=== PATIENT | female | born 1960 | race Caucasian/White ===

== ENCOUNTER → 2018-07-04 14:31 | Outpatient (CLI) | payer OTHER, SELFPAY ==
--- NOTE | 2018-07-04 14:35 | BI_ITS ---
MAMMOGRAPHY - BILATERAL SCREENING REASON FOR EXAM: Female, 57 years old. Routine annual screening examination. PERTINENT HISTORY: Aunt with breast cancer. TECHNIQUE: Digital bilateral breast elke (3D mammographic acquisition) in the CC and MLO projections. 2-D mediolateral oblique (MLO) and craniocaudad (CC) views of both breasts were obtained. CAD: Full Field Digital Mammography with Computer Added Detection was performed. COMPARISON: Comparison is made with prior examination dated July 11, 2017. FINDINGS: Breast Composition: There are scattered areas of fibroglandular density. There are no dominant masses or suspicious calcifications. No other significant abnormalities are identified. There has been no significant change since the prior study. BI/SCREENING MAMM (CAD), BILAT IMPRESSION: Stable bilateral screening mammogram. Yearly follow-up mammogram recommended. (A) ASSESSMENT CATEGORY: BIRADS Category 1: Negative. A letter regarding these results will be sent to the patient by the facility within 30 days. Approximately 10% of breast cancers are not detected by mammography. A normal mammogram should not delay biopsy of a clinically suspicious abnormality. [id number] Electronically Signed: Padilla Resendiz MD at 15:28 EDT Tel [phone], Service support ,
== END ==
PROVIDERS: Family Provider Family Medicine; PCP Family Medicine; Referring Provider Family Medicine; Visit Provider Family Medicine
DX: Z12.31 Encounter for screening mammogram for malignant neoplasm of breast (principal)
CPT/HCPCS: 77063; 77067

== ENCOUNTER → 2019-06-19 10:02 | Outpatient (CLI) | payer OTHER, SELFPAY ==
--- NOTE | 2019-06-19 10:24 | BI_ITS ---
BILATERAL DIGITAL MAMMOGRAM WITH TOMOSYNTHESIS: Mediolateraloblique and craniocaudal views demonstrate no evidence of dominant parenchymal masses. No cluster of microcalcification or architectural distortion is seen. No evidence of skin thickening. No significant change since 07/04/2018. Breast Density: There are scattered areas of fibroglandular density. CAD was used to assist in final assessment. BI/SCREEN MAMM (CAD) W/CHICA BILAT IMPRESSION: NORMAL MAMMOGRAM BILATERALLY. ASSESSMENT CATEGORY: FINAL ASSESSMENT: BI-RAD CATEGORY I (NEGATIVE) YEARLY MAMMOGRAPHY RECOMMENDED Approximately 10% of breast cancers are not detected by mammography. A normal mammogram should not delay biopsy of a clinically suspicious abnormality. [id number] Electronically Signed: Nikolas Lopez, at 17:18 EDT Tel , Service support ,
== END ==
PROVIDERS: Family Provider Family Medicine; PCP Family Medicine; Referring Provider Family Medicine; Visit Provider Family Medicine
DX: Z12.31 Encounter for screening mammogram for malignant neoplasm of breast (principal)
CPT/HCPCS: 77063; 77067

== ENCOUNTER → 2020-07-01 12:26 | Outpatient (CLI) | payer OTHER, SELFPAY ==
--- NOTE | 2020-07-01 12:45 | BI_ITS ---
MAMMOGRAPHY - BILATERAL SCREENING REASON FOR EXAM: Female, 59 years old. Routine annual screening examination. PERTINENT HISTORY: Aunt with breast cancer. TECHNIQUE: Digital bilateral breast chica (3D mammographic acquisition) in the CC and MLO projections. 2-D mediolateral oblique (MLO) and craniocaudad (CC) views of both breasts were obtained. CAD: Full Field Digital Mammography with Computer Added Detection was performed. COMPARISON: Comparison is made with prior examination dated 06/19/2019 and 07/04/2018. FINDINGS: Breast Composition: There are scattered areas of fibroglandular density. There are no dominant masses or suspicious calcifications. No other significant abnormalities are identified. There has been no significant change since the prior study. BI/SCREEN MAMM (CAD) W/CHICA BILAT IMPRESSION: Stable bilateral screening mammogram. Yearly follow-up mammogram recommended. (A) ASSESSMENT CATEGORY: BIRADS Category 1: Negative. A letter regarding these results will be sent to the patient by the facility within 30 days. Approximately 10% of breast cancers are not detected by mammography. A normal mammogram should not delay biopsy of a clinically suspicious abnormality. [id number] Electronically Signed: Padilla Resendiz, at 14:36 EDT , Service support ,
== END ==
PROVIDERS: PCP Family Medicine; Referring Provider Family Medicine; Visit Provider Family Medicine
DX: Z12.31 Encounter for screening mammogram for malignant neoplasm of breast (principal)
CPT/HCPCS: 77063; 77067

== ENCOUNTER → 2021-07-28 12:32 | Outpatient (CLI) | payer OTHER, SELFPAY ==
--- NOTE | 2021-07-28 12:42 | BI_ITS ---
MAMMOGRAPHY - BILATERAL SCREENING REASON FOR EXAM: Female, 61 years old. Routine annual screening examination. PERTINENT HISTORY: Aunt with breast cancer. TECHNIQUE: Digital bilateral breast chica (3D mammographic acquisition) in the CC and MLO projections. 2-D mediolateral oblique (MLO) and craniocaudad (CC) views of both breasts were obtained. CAD: Full Field Digital Mammography with Computer Added Detection was performed. COMPARISON: Comparison is made with prior examination dated 07/01/2020 and 06/19/2019. FINDINGS: Breast Composition: There are scattered areas of fibroglandular density. There are no dominant masses or suspicious calcifications. No other significant abnormalities are identified. There has been no significant change since the prior study. BI/SCRN MAMM (CAD)W/CHICA BILAT IMPRESSION: Stable bilateral screening mammogram. Yearly follow-up mammogram recommended. (A) ASSESSMENT CATEGORY: BIRADS Category 1: Negative. A letter regarding these results will be sent to the patient by the facility within 30 days. Approximately 10% of breast cancers are not detected by mammography. A normal mammogram should not delay biopsy of a clinically suspicious abnormality. [id number] Electronically Signed: Padilla Resendiz MD at 13:59 EST , Service support ,
== END ==
PROVIDERS: PCP Family Medicine; Referring Provider Physician Assistant; Visit Provider Physician Assistant
DX: Z12.31 Encounter for screening mammogram for malignant neoplasm of breast (principal)
CPT/HCPCS: 77063; 77067

== ENCOUNTER → 2021-09-07 08:59 | Outpatient (CLI) | payer OTHER, SELFPAY ==
--- NOTE | 2021-09-07 09:21 | BD_ITS ---
STUDY: DUAL ENERGY X-RAY ABSORPTIOMETRY / DXA REASON FOR EXAM: Female, 61 years old. [id number]. Patient is postmenopausal. TECHNIQUE: Bone Mineral Density (BMD) measurements of lumbar spine and bilateral hips were obtained. COMPARISON: None. FINDINGS: Lumbar Spine (L1-L4): g/cm2 (0.799) / T-score (-2.3) / Z-score (-0.6) Findings are suggestive of osteopenia with a high fracture risk. Left Femur Total: g/cm2 (0.662) / T-score (-2.3) / Z-score (-1.2) Left Femoral Neck: g/cm2 (0.624) / T-score (-2.0) / Z-score (-0.6) Right Femur Total: g/cm2 (0.704) / T-score (-2.0) / Z-score (-0.8) Right Femoral Neck: g/cm2 (0.581) / T-score (-2.4) / Z-score (-1.0) BD/Dexa Bone Density Study IMPRESSION: The patient is considered osteopenic as outlined below according to World Suman Organization (WHO) criteria with a high fracture risk. Reference Information: The T-score is the number of standard deviations above or below the standard which is normal for young adults at their peak bone mineral density. The World Health Organization (WHO) interprets the T-scores as follows: Above -1 Normal bone density Between -1 and -2.5 Osteopenia Equal to / or below -2.5 Osteoporosis As a practical clinical guideline, osteopenia may be graded as follows: Mild -1 through -1.5 Moderate -1.6 through -2.0 Severe -2.1 through -2.4 The Z-score is the number of standard deviations above or below age-matched controls. A Z-score of less than -1.5 would be considered abnormal. References: 1. NIH Osteoporosis and Related Bone Diseases www osteo.org 2. International Society for Clinical Densitometry www iscd.org 3. National Osteoporosis Foundation www nof.org Electronically Signed: Padilla Resendiz MD at 10:05 EST , Service support ,
== END ==
PROVIDERS: PCP Family Medicine; Referring Provider Physician Assistant; Visit Provider Physician Assistant
DX: Z78.0 Asymptomatic menopausal state (principal)
CPT/HCPCS: 77080

== ENCOUNTER → 2022-08-22 | Outpatient (CLI) | payer OTHER, SELFPAY ==
--- NOTE | 2022-08-22 14:41 | BI_ITS ---
MAMMOGRAPHY - BILATERAL SCREENING REASON FOR EXAM: Female, 62 years old. Routine annual screening examination. PERTINENT HISTORY: Non-contributory. TECHNIQUE: Digital bilateral breast chica (3D mammographic acquisition) in the CC and MLO projections. 2-D mediolateral oblique (MLO) and craniocaudad (CC) views of both breasts were obtained. CAD: Full Field Digital Mammography with Computer Added Detection was performed. COMPARISON: Comparison is made with prior study dated 07/28/2021 and 07/01/2020. FINDINGS: Breast Composition: There are scattered areas of fibroglandular density. There are no dominant masses or suspicious calcifications. No other significant abnormalities are identified. There has been no significant change since the prior study. BI/SCRN MAMM (CAD)W/CHICA BILAT IMPRESSION: Stable bilateral screening mammogram. Yearly follow-up mammogram recommended. (A) ASSESSMENT CATEGORY: BIRADS Category 1: Negative. A letter regarding these results will be sent to the patient by the facility within 30 days. Approximately 10% of breast cancers are not detected by mammography. A normal mammogram should not delay biopsy of a clinically suspicious abnormality. [id number] Electronically Signed: Padilla Resendiz MD at 15:29 EST ,
== END | disposition home or self-care (01) ==
LOC: OPBI 14:38
PROVIDERS: PCP Physician Assistant; Visit Provider Physician Assistant
DX: Z12.31 Encounter for screening mammogram for malignant neoplasm of breast (principal)
CPT/HCPCS: 77063; 77067

== ENCOUNTER → 2022-09-24 | Outpatient (CLI) | payer OTHER, SELFPAY ==
--- NOTE | 2022-09-24 09:47 | ECHOD_ITS ---
Reason For Study: ARRYTHMIA Procedure This was a 2D Doppler, Color Flow transthoracic echocardiogram. Exam performed in department. Left Ventricle Normal LV size. Left ventricular systolic function is normal. The estimated ejection fraction is 65 %. No regional wall motion abnormalities noted. Right Ventricle Normal RV size. Normal systolic function. Atria Normal left atrium. Normal right atrium. Mitral Valve Normal mitral valve. Tricuspid Valve Normal tricuspid valve. Mild (1+) tricuspid valve insufficiency. Pulmonary artery systolic pressure is 34 mmHg. Aortic Valve Normal aortic valve. Trisinus/trileaflet aortic valve. Pulmonic Valve Normal pulmonic valve. Great Vessels Normal aortic root. The pulmonary artery is normal size. Normal inferior vena cava. Pericardium/Pleural No pericardial effusion. MMode/2D Measurements & Calculations LVIDd: 4.7 cm IVSd: 0.76 cm Ao root diam: 3.2 cm LVIDs: 3.0 cm LVPWd: 0.99 cm RVDd: 3.8 cm FS: 35.3 % LAV(MOD-bp): 59.4 ml LVAd ap4: 28.4 cm2 SV(MOD-sp4): 50.0 ml LAV(MOD-bp) Indexed: 33.6 ml/m2 LVLd ap4: 8.1 cm LAV(MOD-sp2): 61.3 ml EDV(MOD-sp4): 81.7 ml LAV(MOD-sp4): 49.0 ml EDV(sp4-el): 84.6 ml LVAs ap4: 15.8 cm2 LVLs ap4: 6.9 cm ESV(MOD-sp4): 31.7 ml ESV(sp4-el): 30.7 ml EF(MOD-sp4): 61.2 % EF(sp4-el): 63.7 % SV(sp4-el): 53.9 ml LA A4 area: 17.1 cm2 LA dimension(2D): 3.3 cm RA A4 area: 16.3 cm2 Time Measurements MV dec time: 0.23 sec Doppler Measurements & Calculations MV E max denys: 105.2 cm/sec Lat Peak E' Denys: 10.0 cm/sec Med Peak E' Denys: 8.2 cm/sec MV A max denys: 52.1 cm/sec E/E' lat: 10.5 E/E' med: 12.8 MV E/A: 2.0 MV V2 max: 121.1 cm/sec Ao V2 max: 149.2 cm/sec MV max P.9 mmHg MV dec slope: 452.8 cm/sec2 Ao max P.9 mmHg MV V2 mean: 61.8 cm/sec Ao V2 mean: 105.2 cm/sec MV mean P.8 mmHg Ao mean P.0 mmHg MV V2 VTI: 41.8 cm Ao V2 VTI: 40.6 cm AV (velocity ratio): 0.64 LV V1 max: 101.6 cm/sec PA V2 max: 72.9 cm/sec TR max denys: 268.4 cm/sec LV V1 max P.1 mmHg PA V2 mean: 54.4 cm/sec TR max P.8 mmHg LV V1 mean P.1 mmHg LV V1 mean: 67.7 cm/sec LV V1 VTI: 26.2 cm ECHO/Echo Complete Interpretation Summary Normal LV size. Left ventricular systolic function is normal. The estimated ejection fraction is 65 %. Pulmonary artery systolic pressure is 34 mmHg. Ordering Physician: Omar Treviño Referring Physician: Omar Treviño Performed By: Joi Mcclure RCS
== END | disposition home or self-care (01) ==
PROVIDERS: PCP Physician Assistant; Referring Provider Internal Medicine Cardiovascular Disease; Visit Provider Internal Medicine Cardiovascular Disease
DX: R00.1 Bradycardia, unspecified (principal); I07.1 Rheumatic tricuspid insufficiency
CPT/HCPCS: 93225; 93226; 93306

== ENCOUNTER 2023-01-07 08:05 | Day surgery (SDC) | payer OTHER, SELFPAY ==
[2023-01-07 08:24] VITALS: BP 113/75; PULSE 54; RESP 16; TEMP 36.3; O2SAT 100; BMI 25.8
--- NOTE | 2023-01-07 09:11 | RAD_ITS ---
PROCEDURE: Left hip injection. DATE OF EXAMINATION: January 07, 2023. INDICATION: Female, 62 years old. Chronic left hip pain. FLUOROSCOPY TIME (if supplied): (6 seconds) minutes/seconds. 0.87 mGy. 3 images were submitted. RAD/Fluoro Guided Needle Placement IMPRESSION: Intraoperative fluoroscopic services provided for left hip injection. Electronically Signed: Padilla Resendiz MD at 12:34 EDT ,
[2023-01-07] MEDS: MethylPREDNISolone Acetate 80 MG/ML Vial (09:21)
[2023-01-07] MEDS: Lidocaine 1% (5 ml sdv) 5 ML Vial (09:21)
--- NOTE | 2023-01-07 09:27 | PCM.OPRPT ---
Report of Operation Date of Procedure: 01/07/23 Description of Surgical Findings:: PREOPERATIVE DIAGNOSIS: Osteoarthritis of the left hip POSTOPERATIVE DIAGNOSIS: Osteoarthritis of the left hip PROCEDURE PERFORMED: Left hip intraarticular steroid injection under fluoroscopy guidance. ANESTHESIA: Local BLOOD LOSS: Minimal. COMPLICATIONS: None. DESCRIPTION OF PROCEDURE: History and physical of today was reviewed. Risks and benefits of the procedure were explained. The patient understood and agreed to proceed. Informed consent was obtained. IV inserted per routine protocol. The patient was taken to the operating room and placed in the supine position. The left hip area was prepped and draped in a sterile fashion using iodine x3. Under fluoroscopy guidance on AP view, the left hip joint was visualized. The skin and subcutaneous tissue was anesthetized with approximately 3 mL of 1% lidocaine using a 25-gauge regular needle approximately 3 cm cephalad to the left greater trochanter. Under direct visualization with fluoroscopy on an AP view, using a 22-gauge 5-inch spinal needle, the needle was advanced via the skin using the lateral approach. The tip of the needle was maneuvered and directed towards the superiormost aspect of the hip joint. Once the tip of the needle was at the vicinity of the joint, after negative aspiration for blood and positive aspiration of synovial fluid, a total of 1 mL of contrast was injected to confirm correct placement of the needle as well as halo spread around the hip joint. After repeated negative aspiration for blood and confirmation on AP as well as oblique view, a total of 10 mL of preservative-free 0.25% Marcaine with 80 mg of Depo-Medrol was injected easily. The needle was then removed intact. The patient experienced no sign or symptoms of intrathecal or intravascular injection. The patient experienced no paresthesia. The procedure was completed without any apparent difficulty or any complications. The patient appeared to tolerate it well. ASSESSMENT AND PLAN: This is a 62-year-old female with osteoarthritis of the left hip status post left hip intra-articular steroid injection under fluoroscopic guidance, patient will continue his current her current medications, patient will will follow in approximately 2 weeks for reevaluation.
[2023-01-07 09:38] VITALS: BP 113/75; BP 129/75; PULSE 51; RESP 16; O2SAT 98
== END 2023-01-07 09:42 | disposition home or self-care (01) ==
LOC: SDC 08:09 → AC 08:09
PROVIDERS: PCP Physician Assistant; Referring Provider Anesthesiology Pain Medicine; Visit Provider Anesthesiology Pain Medicine
PROC: 3E0U3GC Introduction of Other Therapeutic Substance into Joints, Percutaneous Approach (ICD-10-PCS; CPT 20610; principal; 2023-01-07 09:25)
DX: M16.12 Unilateral primary osteoarthritis, left hip (principal)
CPT/HCPCS: 20610; 76000; 77002

== ENCOUNTER → 2023-07-22 | Outpatient (CLI) | payer OTHER, SELFPAY ==
--- NOTE | 2023-07-22 12:34 | BI_ITS ---
MAMMOGRAPHY - BILATERAL SCREENING REASON FOR EXAM: Female, 63 years old. Routine annual screening examination. PERTINENT HISTORY: Non-contributory. TECHNIQUE: Digital bilateral breast chica (3D mammographic acquisition) in the CC and MLO projections. 2-D mediolateral oblique (MLO) and craniocaudad (CC) views of both breasts were obtained. CAD: Full Field Digital Mammography with Computer Added Detection was performed. COMPARISON: Comparison is made with prior study dated August 22, 2022 and July 28, 2021. FINDINGS: Breast Composition: There are scattered areas of fibroglandular density. There are no dominant masses or suspicious calcifications. No other significant abnormalities are identified. There has been no significant change since the prior study. BI/SCRN MAMM (CAD)W/CHICA BILAT IMPRESSION: Stable bilateral screening mammogram. Yearly follow-up mammogram recommended. (A) ASSESSMENT CATEGORY: BIRADS Category 1: Negative. A letter regarding these results will be sent to the patient by the facility within 30 days. Approximately 10% of breast cancers are not detected by mammography. A normal mammogram should not delay biopsy of a clinically suspicious abnormality. [id number] Electronically Signed: Padilla Resendiz MD at 13:58 EST ,
== END | disposition home or self-care (01) ==
LOC: OPBI 12:33
PROVIDERS: PCP Physician Assistant; Referring Provider Physician Assistant; Visit Provider Physician Assistant
DX: Z12.31 Encounter for screening mammogram for malignant neoplasm of breast (principal)
CPT/HCPCS: 77063; 77067

== ENCOUNTER → 2023-10-01 | Outpatient (CLI) | payer OTHER, SELFPAY ==
--- OUTSIDE RECORDS SUMMARY | 2023-10-01 12:42 | XMS RPT_ITS | CCD ---
Author Name Unknown Address [address] [place] [address] Organization [facility] Care Team Providers Care Inspector Repairer Name Role Phone Trinity Olivas Primary Care Provider TRINITY OLIVAS Primary Care Unavailable TRINITY OLIVAS Primary Care Unavailable Trinity Olivas PA-C Unavailable Trinity Olivas PA-C Unavailable Cardiology Provider Unavailable Unavailable Physical Therapy Provider Unavailable [facility] Unavailable ENT Provider Unavailable Unavailable Harvey LOPEZ, Dr. Amanda Johnson Unavailable Dr. Cholo Guadarrama MD Unavailable Padmini Shen LPN Unavailable Reanna Franz PA-C Unavailable Marcial SWANN [place] Unavailable Unavailable Elliot SWANN, Mar Dobbs Unavailable Unavailable Isaac SWANN, Willa C Unavailable Unavailable Gogoi (scribe), Hemanta Unavailable Unavaila radha Mccarthy LPN, Maria T Unavailable Unavailable Rainer Kaamra MD Unavailable Ibeth Chavis PA-C Unavailable Olvin JANE, Jh Dobbs Unavailable Olvin BATRES, Raeann Johnson Unavailable Unavail able Mone Deleon LPN Unavailable Unavailable Ibeth Gibbons RN Unavailable UnavailIrma Saravia RN Unavailable Brooks LOG LOADER, Brianna Unavailable Unavailable Mutersbaugh LOG LOADER, Shaniqua K Unavailable Dawna Salazar (Scribe), Cirilo Unavailable Unavailab le Richert LOG LOADER, Ramonita Johnson Unavailable Unavailab le Beka LOG LOADER, Mimi Gusman Unavailable Unavailab le Hua LOG LOADER, Kelsi Tyler Unavailable Unavailab jaye Luciano MA, Mone Unavailable Unavailable Wengerd LOG LOADER, Rika Unavailable Unavailabl e Venkata LOG LOADER, Cony Weeks Unavailable Unavaila ble Zaugg LOG LOADER, Bre Unavailable Unavailable Unavailable Unavailable TRINITY OLIVAS Attending Unavailable TRINITY OLIVAS Consulting Unavailable TRINITY OLIVAS Primary Care Unavailable TRINITY OLIVAS Admitting Unavailable PROVIDER, UNKNOWN Consulting Unavailable Allergies Allergy Classification Reported Allergen(s) Allergy Type Date of Onset Reaction(s) Facility (3 sources) Seasonal allergy; Translations: [SEASONAL ALLERGIES] Allergy to substance 09-11-2022 Itching [facility] Medications Current Medications Medication Drug Class(es) Dates Sig (Normalized) Sig (Original) amoxicillin 875 mg / clavulanate 125 mg oral tablet (13 sources) Penicillin-class Antibacterial Start: 09-11-2022 End: 09-18-2022 take 1 tablet by mouth twice daily amoxicillin-clav ulanic acid (AUGMENTIN) 875-125 mg per tablet Indications: Bacterial sinusitis Take 1 tablet by mouth twice daily for 7 days. 14 tablet 0 09/11/2022 09/18/2022 Active Completed/Discontinued Medications Medication Drug Class(es) Dates Sig (Normalized) Sig (Original) amoxicillin 500 mg oral capsule (4 sources) Penicillin-class Antibacterial Start: 05-19-2015 End: 05-29-2015 take 1 capsule by mouth three times daily AMOXICILLIN, 500MG (Oral Capsule) ; 1 (one) Capsule three times daily for 10 days Quantity: 30 {Capsule} Refills: 0 Ordered: 19-May-2015 MD Rainer Kamara Start: 19-May-2015 End: 29-May-2015 Status: Inactive azithromycin 500 mg oral tablet (8 sources) Macrolide Antimicrobial Start: 10-23-2016 End: 08-12-2017 take 1 tablet by mouth once daily Azithromycin 500 MG Oral Tablet ; 1 (one) Tablet daily for 0 days Quantity: 3 {Tablet} Refills: 0 Ordered: 12-Aug-2017 GISEL Gibbons Start: 23-Oct-2016 End: 12-Aug-2017 Status: Inactive Problems Active Problems Problem Classification Problem Date Documented Da te Episodic/Chronic Abdominal pain (4 sources) Left sided abdominal pain; Translations: [Unspecified abdominal pain] 05-22-2012 Episodic Acute bronchitis (8 sources) Acute bronchitis; Translations: [Acute bronchitis, unspecified] 01-18-2022 Episodic Anxiety disorders (12 sources) Anxiety; Translations: [Anxiety disorder, unspecified] 06-28-2023 Chronic Cardiac dysrhythmias (16 sources) Bradycardia; Translations: [Bradycardia, unspecified] 06-28-2023 Episodic Conditions associated with dizziness or vertigo (8 sources) Vertigo; Translations: [Dizziness and giddiness] 07-12-2022 Episodic Disorders of lipid metabolism (20 sources) Hyperlipidemia; Translations: [Hyperlipidemia, unspecified] 06-28-2023 Chronic E Codes: Natural/environment (8 sources) Infection of tick bite; Translations: [Bitten or stung by nonvenomous insect and other nonvenomous arthropods, initial encounter] 06-28-2023 Episodic Genitourinary symptoms and ill-defined conditions (5 sources) Scalding pain on urination ; Translations: [Dysuria] 04-21-2023 Episodic Immunizations and screening for infectious disease (8 sources) Need for prophylactic vaccination and inoculation against influenza 01-18-2022 Episodic Inflammation; infection of eye (except that caused by tuberculosis or sexually transmitteddisease) (13 sources) Bacterial conjunctivitis; Translations: [Unspecified conjunctivitis] Episodic Influenza (8 sources) Influenza with other respiratory manifestations 01-18-2022 Episodic Malaise and fatigue (4 sources) Fatigue; Translations: [Other fatigue] 07-15-2012 Episodic Menopausal disorders (8 sources) Postmenopausal bleeding; Translations: [Postmenopausal bleeding] 06-28-2023 Chronic Mood disorders (8 sources) Depressive disorder; Translations: [Depressive disorder, not elsewhere classified] 06-28-2023 Chronic Nutritional deficiencies (8 sources) Vitamin D deficiency; Translations: [Vitamin D deficiency, unspecified] 06-28-2023 Chronic Osteoarthritis (8 sources) Osteoarthritis; Translations: [Unspecified osteoarthritis, unspecified site] 06-28-2023 Chronic Other aftercare (12 sources) Drug indicated; Translations: [Other terminal supervisor (current) drug therapy] 01-18-2022 Episodic Other bone disease and musculoskeletal deformities (8 sources) Osteopenia; Translations: [Other specified disorders of bone density and structure, unspecified site] 06-28-2023 Episodic Other female genital disorders (8 sources) Lesion of uterus; Translations: [Noninflammatory disorder of uterus, unspecified] 09-19-2023 Episodic Other gastrointestinal disorders (8 sources) Irritable bowel syndrome; Translations: [Irritable bowel syndrome without diarrhea] 06-28-2023 Chronic Other gastrointestinal disorders (8 sources) Disorder of colon; Translations: [Disease of intestine, unspecified] 09-19-2023 Episodic Other liver diseases (16 sources) Fatty (change of) liver, not elsewhere classified; Translations: [Other chronic nonalcoholic liver disease] 06-28-2023 Chronic Other non-traumatic joint disorders (20 sources) Hip pain; Translations: [Pain in unspecified hip] 06-28-2023 Episodic Other non-traumatic joint disorders (8 sources) Pain in unspecified knee; Translations: [Pain in joint, lower leg] 06-28-2023 Episodic Other nutritional; endocrine; and metabolic disorders (8 sources) Overweight in adulthood with body mass index of 25 or more but less than 30; Translations: [Body mass index (BMI) 25.0-25.9, adult] 06-28-2023 Episodic Other nutritional; endocrine; and metabolic disorders (8 sources) Overweight; Translations: [Overweight] 06-28-2023 Episodic Other screening for suspected conditions (not mental disorders or infectious disease) (20 sources) Screening status; Translations: [Encounter for screening for malignant neoplasm of colon] 05-17-2020 Episodic Other skin disorders (8 sources) Skin lesion; Translations: [Disorder of the skin and subcutaneous tissue, unspecified] 06-28-2023 Episodic Other upper respiratory disease (8 sources) Allergic rhinitis; Translations: [Allergic rhinitis, unspecified] 05-17-2020 Chronic Other upper respiratory disease (8 sources) Nasal congestion; Translations: [Nasal congestion] 10-26-2013 Episodic Other upper respiratory infections (20 sources) Bacterial sinusitis; Translations: [Chronic sinusitis, unspecified] Chronic Other upper respiratory infections (16 sources) Acute pharyngitis; Translations: [Acute pharyngitis, unspecified] 01-18-2022 Episodic Residual codes; unclassified (8 sources) Influenza vaccination declined; Translations: [Immunization not carried out because of patient refusal] 06-28-2023 Episodic Residual codes; unclassified (8 sources) Postmenopausal state; Translations: [Asymptomatic menopausal state] 06-28-2023 Episodic Unclassified (4 sources) Number of Children 01-18-2022 Past or Other Problems Problem Classification Problem Date Documented Da te Episodic/Chronic Mood disorders (4 sources) Mood disorders 10-17-2010 Unclassified (4 sources) Hip pain - The onset of the hip pain has been gradual and has been occurring in a persistent pattern for 2 years. The course has been worsening. The hip pain is described as being a moderate dull aching located in the left hip. The hip pain radiates to the anterior thigh. The pain is aggravated by walking. Previous diagnostic tests have included plain radiographs and MRI. Note for Hip pain : Pt wants to discuss referral. Pt just started with hand pain. Pt also has a spot on her back she wants checked for skin cancer.Left hand - 1st and 2nd digits; both big toes. No swelling or redness. No morning stiffness. No family history of RA. 06-28-2023 Unclassified (4 sources) Dizziness - The onset of the dizziness has been acute and has been occurring in an intermittent pattern for 2 weeks. The course has been recurrent. The dizziness is characterized as spinning of the environment (and feeling off balance). There has been associated nausea (just on saturday morning) and vomiting (just on saturday morning). Note for Dizziness : No presyncope or syncope. No palpitations or chest pain.The first episode occurred after she was walking and stopped (unsure of head movement at that time). She didn't have any again until Saturday morning when she rolled over in bed - had the n/v and episode lasted a total of 2 hours; has had since then with bending over and rolling over but episodes have been more mild. No vision changes.No recent cold symptoms but always has sinus issues. She is fasting today. 07-12-2022 Unclassified (3 sources) Knee pain - The knee pain has been occurring in a persistent pattern for 6 months. The course has been worsening. The knee pain is in the right knee. The knee pain is characterized as a sharp stabbing. The knee pain is described as being located in the entire knee. The knee pain is aggravated by physical activity. There were no relieving factors. The symptoms have been associated with decreased ROM. There has been no previous physical therapy. There has been no previous surgeries. There is no use of assistive devices. 01-18-2022 Unclassified (3 sources) [ADDITIONAL REASON] Hip pain - The hip pain has been occurring in a persistent pattern for 6 months. The course has been constant. The hip pain is described as being a sharp stabbing located in the hip (left). The hip pain radiates to the anterior thigh. The pain is aggravated by general physical activity. There are no relieving factors. The symptoms have been associated with limping. There has been no previous physical therapy. There has been no previous surgeries. There has been no need for use of assistive devices. Note for Hip pain : Saw Sky Garcia at [facility] in August - xray of both him and knee showed arthritis; recommended tylenol prn.Did critical care rn with some improvement but no resolution.Saw Dr. 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 Any activity aggravates - sometimes has pain in left buttocks and left anterior thigh. Denies back pain. 01-18-2022 Unclassified (4 sources) Insect Bite/Sting - Symptoms are not exacerbated by scratching or dependent position. This occurred 4 day(s) ago (but got it out yesterday.) at home. The patient sustained the insect bite/sting to the back (left side). The insect causing the bite/sting is thought to be a tick. Presenting symptoms included insect bite/sting. Current symptoms include single bite or sting and redness at the site of the bite or sting, but do not include multiple insect bites or stings, itching at the site of the bite or sting, pain at the site of the bite or sting, swelling at the site of the bite or sting or non-healing skin lesion. Onset was sudden. The patient describes this as moderate in severity and unchanged. 12-05-2021 Unclassified (4 sources) Well adult female - The patient feels well with no complaints, has good energy level and is sleeping well (sometimes has trouble). The patient has a balanced diet and takes no supplemental vitamins & iron. The patient does not exercise. The patient sleeps 7 hours per night. Note for Well adult female : Pt has a lot of stress right now - improving. Weight is down 14 pounds in the past year which she feels is stress related. 08-17-2021 Unclassified (4 sources) bowel problems - For past two weeks has had changes in bowels. Started as more frequent but normal bowel movements. Last week became looser. This past weekend felt like she needed to have bm but was not able to go. Has tried prune juice, miralax and milk of magnesia. Her last colonoscopy was in 2015 and was normal and told to repeat in 10 yrs. Patient states that the miralax and prune juice seemed to provide some temporary relief. Patient reports that she has had some problems similar to this in the past and was told that she has irritable bowel syndrome. Patient denies any blood in her stool, nausea, vomiting, or fever. Patient states that she has been eating without any problems. Patient states that she has had some mild left lower quadrant pain with her bowel movements. Her last bowel movement was a small one this morning. 05-17-2020 Unclassified (4 sources) Cold Symptoms - Symptoms include sneezing, nasal congestion, runny nose (noticed having bloody nasal drainage. Was purlent drainage in the beginning, now is more clear), ear pain (over the weekend had ear pain, now has ear pressure), dry cough (occasional cough from post nasal drainage), fever (did have low grade of 99.8 F about 2 days ago), general malaise, headache (did have in the beginning) and facial pain (sinus pressure), but do not include sore throat, wheezing or chills. The onset was 8 day(s) ago. The symptoms occur constantly. The patient describes this as unchanged. Current treatment includes non-prescription cold medication (Nyquil) and acetaminophen. Risk factors do not include smoking. 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 Medical history includes seasonal allergies and recurrent sinusitis, but patient denies history of asthma. Note for Upper respiratory infection : Wakes up in the mornings, with eyes matted and redness of scleras. Denies eyes feeling itchy. 12-04-2018 Unclassified (4 sources) Well adult female - The patient feels well with no complaints, has good energy level and is sleeping poorly. The patient has a balanced diet and takes no supplemental vitamins & iron. The patient does not exercise. The patient sleeps 6 hours per night. Note for Well adult female : MARCI 08/12/2017labs printed 07-04-2018 Unclassified (4 sources) Cold Symptoms - Symptoms include sneezing (occasionally), nasal congestion (has post nasal drainage), ear fullness, dry cough, productive cough (occasionally is productive. At times feels short of breath.) and facial pain (occasionally), but do not include runny nose, ear pain (did have), sore throat, wheezing, fever, chills, general malaise or headache. The onset was 6 week(s) ago. The symptoms occur constantly. The patient describes this as moderate in severity and unchanged. Current treatment includes non-prescription cold medication, rest and a decongestant nasal spray (Flonase). Risk factors do not include smoking. The patient has been exposed to an individual with an upper respiratory infection (possibly, works at elementary school). Medical history includes seasonal allergies, but patient denies history of asthma or tonsillectomy. 08-12-2017 Unclassified (4 sources) Cough - The onset of the cough has been sudden and has been occurring in a persistent pattern for 6 days. The course has been constant. The cough is characterized as dry. There is no sputum production. The cough occurs all the time. There is no fever or headache. 10-23-2016 Unclassified (4 sources) Cold Symptoms - Symptoms include ear pain, ear fullness, sore throat, dry cough (slight), fever (highest 102), chills, general malaise and headache, but do not include sneezing, nasal congestion or runny nose. The onset was sudden 3 day(s) ago. The symptoms occur constantly. The patient describes this as moderate in severity and worsening. Current treatment includes NSAIDs. Medical history includes seasonal allergies, but patient denies history of asthma. 05-19-2015 Unclassified (4 sources) Well Adult, female - The patient feels well with no complaints, has good energy level and is sleeping well. The first day of the last menstrual period was : (absent-menopause). The current method of contraception is: tubal ligation. The patient has a balanced diet and takes no supplemental vitamins & iron. The patient exercises weekly. The patient sleeps 9 hours per night. Note for Well Adult, female : Patient declines a flu shot today, but does would like to discuss the shingles vaccine. 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 She has not had a colonoscopy and is interested in going forward with this if her insurance will cover it. 07-26-2014 Unclassified (4 sources) Cold Symptoms - Symptoms include nasal congestion, runny nose (mostly clear but occasionally green), ear pain, dry cough, fever (just started today) and headache, but do not include sore throat. The onset was gradual 3 week(s) ago. The symptoms occur constantly. The patient describes this as moderate in severity and worsening. Current treatment includes non-prescription cold medication and cough suppressants. The patient has not been exposed to an individual with similar symptoms. Medical history includes recurrent sinusitis, but patient denies history of seasonal allergies, recurrent strep pharyngitis, asthma, tonsillectomy or recurrent ear infections. Note for Upper respiratory infection : + achiness. Given prescription for flonase on 09/03 but never picked it up. 09-16-2013 Unclassified (4 sources) Cold Symptoms - Symptoms include nasal congestion, ear fullness, productive cough (minimal), fever (99.6 today), chills, headache and facial pain, but do not include sneezing, runny nose or sore throat. The onset was sudden 1 week(s) ago. The symptoms occur constantly. The patient describes this as moderate in severity and worsening. Current treatment includes non-prescription cold medication (generic daytime medication). 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 Patient denies history of seasonal allergies, recurrent sinusitis, recurrent strep pharyngitis, asthma, tonsillectomy or recurrent ear infections. 07-17-2013 Unclassified (4 sources) UTI - Symptoms include dysuria and urinary frequency. The pain is located in the right lower abdomen. There is no radiation. The patient describes the pain as burning. Onset was sudden. There is no known event that preceded symptom onset. The symptoms occur intermittently. The patient describes this as mild and unchanged. Associated symptoms include urinary incontinence (with sneezing), but do not include fever, chills or nausea. Note for UTI : pt has had these sx several times over the last month, pushes cranberry juice and water and sx go away, then return again within a few days. 08-12-2012 Unclassified (4 sources) Well Adult, female - The patient feels well with no complaints, has good energy level and is sleeping well. Most recent Pap smear : (2008?). The first day of the last menstrual period was : (2010). Date of last mammogram : (06/04/12). Patient has not had bone density screening. Date of most recent cholesterol screening : (06/03/12). Date of most recent glucose screening : (06/03/12). Patient has not received a recent influenza vaccine. Last Tetanus booster: unknown/unsure. The patient has a balanced diet and takes supplemental vitamins. The patient does not exercise. The patient sleeps 6 hours per night. 06-18-2012 Unclassified (4 sources) Abdominal pain - The onset of the abdominal pain has been acute and has been occurring in an intermittent pattern for 3 months. The course has been increasing. The pain is described as a moderate sharp pain, dull ache and pressure sensation. The pain is located in the left upper quadrant and radiates to the back. The symptoms have no aggravating factors but have no relieving factors. There has been no associated fever, heartburn or nausea. 05-22-2012 Unclassified (4 sources) Conjunctivitis - The onset of the conjunctivitis has been acute and has been occurring in a persistent pattern for 2 days. The course has been worsening. The conjunctivitis is described as mild to moderate. There has been associated eye discharge (eyes were matted closed for tthe past 2 mornings) and eye pain (with light), while there has been no headache, runny nose or sore throat. Note for Conjunctivitis : No history of foreign body to eye or scratching eye. No blurred vision. 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 10-22-2011 Unclassified (4 sources) Preoperative Clearance - Surgical procedure(s) planned: other (foot surgery right foot). Date of procedure: () Surgeon: (Dr. Fairchild) and Location of procedure: ([facility]) There have been no problems with general anesthesia or blood/blood products. Prosthetics include eye glasses. 08-24-2011 Unclassified (1 source) Hip pain - The hip pain has been occurring in a persistent pattern for 6 months. The course has been constant. The hip pain is described as being a sharp stabbing located in the hip (left). The hip pain radiates to the anterior thigh. The pain is aggravated by general physical activity. There are no relieving factors. The symptoms have been associated with limping. There has been no previous physical therapy. There has been no previous surgeries. There has been no need for use of assistive devices. Note for Hip pain : Saw Sky Garcia at [facility] in August - xray of both him and knee showed arthritis; recommended tylenol prn.Did critical care rn with some improvement but no resolution.Saw Dr. 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 Any activity aggravates - sometimes has pain in left buttocks and left anterior thigh. Denies back pain. 01-18-2022 Unclassified (1 source) [ADDITIONAL REASON] Knee pain - The knee pain has been occurring in a persistent pattern for 6 months. The course has been worsening. The knee pain is in the right knee. The knee pain is characterized as a sharp stabbing. The knee pain is described as being located in the entire knee. The knee pain is aggravated by physical activity. There were no relieving factors. The symptoms have been associated with decreased ROM. There has been no previous physical therapy. There has been no previous surgeries. There is no use of assistive devices. 01-18-2022 Results Test Name Value Interpretation Reference Range Facil ity Vital Signs Date Time Vital Sign Value Performing Clinician Faci lity 06-28-2023 09:40-0400 Body height 167.64 cm Mimi Ireland [facility], [facility].; [facility], [facility]. 06-28-2023 09:40-0400 Body mass index (BMI) [Ratio] 25.99 kg/m2 Mimi Ireland LPN [facility], [facility].; [facility], [facility]. 06-28-2023 09:40-0400 Body surface area Derived from formula 1.82 m2 Mimi Ireland LPN [facility], [facility]. 06-28-2023 09:40-0400 Body weight 73.03 kg Mimi Ireland LPN [facility].; [facility]. 06-28-2023 09:40-0400 Diastolic blood pressure 67 mm[Hg] Mimi Ireland LPN [facility].; [place] [facility] [facility]. Encounters Encounter Date Encounter Type Care Provider Facility Start: 09-26-2023 End: 09-26-2023 ambulatory TRINITY OLIVAS [facility] Start: 09-19-2023 End: 09-19-2023 Evaluation finding [facility]imi [facility] LPN [facility].; [employer] [facility], [facility]. Start: 09-19-2023 End: 09-19-2023 Orders Trinitykarlos Olivas PA-C Work Phone: [facility] Start: 09-19-2023 End: 09-19-2023 Orders Trinity Johnstoner PA-C Work Phone: [place] [facility] [facility] Start: 06-28-2023 End: 06-28-2023 Patient encounter procedure Trinity Johnstoner PA-C Work Phone: [facility]. Start: 04-21-2023 End: 04-21-2023 ambulatory TRINITY OLIVAS Facility:[facility] Start: 04-21-2023 End: 04-21-2023 Patient encounter procedure Romero Carter APRN.DRUG ROOM OPERATOR Work Phone: [facility] Procedures Date Procedure Procedure Detail Performing Clinician Start: 06-28-2023 End: 07-22-2023 Screening digital breast tomosynthesis bi Trinity Chandra Brendon PA-C Work Phone: Start: 04-21-2023 Urnls dip stick/tabl et rgnt auto w/o microscopy Bre Clinton APRN.DRUG ROOM OPERATOR Work Phone: Start: 07-18-2022 End: 08-23-2022 Screening mammography bi 2-view breast inc cad Trinity Prateek Olivas PA-C Work Phone: Start: 07-12-2022 End: 07-12-2022 Ecg routine ecg w/least 12 lds i&r only Trinity Chandra Brendon JANE Work Phone: Start: 08-17-2021 End: 08-17-2021 Depression screening Trinity Prateek Woo Work Phone: Start: 08-17-2021 End: 09-20-2021 Dxa bone density study 1/> sites axial skel Trinity Chandra Brendon JANE Work Phone: Start: 08-17-2021 End: 08-17-2021 Pos clin depres scrn f/u doc Trinitykarlos Olivas PA-C Work Phone: Start: 07-31-2021 End: 07-31-2021 Screening mammography Bre Pacheco LOG LOADER Plan of Treatment Date Care Activity Detail Author Start: 10-14-2023 Patient encounter procedure Medical; EXTENDED RTN - pre-op 10/31, PAT @ [facility] 10/09 [employer]. Start: 14-Oct-2023 14:30 BUCK Olivas Appointment Request [employer]. Start: 09-23-2023 Basic metabolic pane l calcium total BMP w/ GFR (F) (33508) Start: 23-Sep-2023 Request [employer] Start: 09-23-2023 Nursing evaluation o f patient and report Medical; Nurse visit - BMP mjp [employer]. Start: 23-Sep-2023 13:40 NURSE, FLOAT Appointment Request [employer]. Start: 09-19-2023 End: 09-19-2023 Ct abdomen & pelvis w/contrast material [employer]. Immunizations Immunization Date Immunization Notes Care Provider Fa jayna 08-17-2021 Shingrix 50 MCG/0.5M L Intramuscular Suspension Reconstituted Trinity Olivas PA-C Work Phone: [employer]; [employer]. 08-17-2021 TD(adult) unspecifie d formulation Trinity Olivas PA-C Work Phone: [facility] [employer] Payers Date Payer Category Payer Unknown [id number] 2022 Unknown [id number] 2022 Unknown [id number] 1960 Unknown [id number] Social History Date Type Detail Facility Start: 09-11-2022 Tobacco smoking stat [facility] Never smoked tobacco [facility] Start: 09-11-2022 Tobacco use and exposure Smokeless tobacco non-user [facility] Start: 09-11-2022 End: 04-21-2023 Alcohol intake Lifetime non-drinker (finding) [facility] Start: 1960 Sex Assigned At Not on file [facility] Start: 04-21-2023 History of Social function [employer] [facility] [employer] Start: 04-21-2023 Tobacco use panel [facility] Tobacco Use: Tobacco Use: ; N ever smoker. [employer].; [employer] [facility] [employer] [facility] Work Phone: Progress note 04-21-2023 Note Date & Type Note Facility 04-21-2023 Note HNO ID: [id number] Author: Romero Carter APRN.DRUG ROOM OPERATOR Service: ? Author Type: Nurse Practitioner Type: Progress Notes Filed: 04/21/2023 9:55 AM Note Text: Subjective HPI HPI Michell Jordan is a 62 year old female who presents today for CC of urinary urgency, frequency, burning. This started 4 days ago. Has tried nothing for relief. Symptoms are worsened by nothing. Risk factors hx of uti/remote. Patient not known to [facility], denies renal/hepatic disease. .Patient presents with: Urinary Problem: burning and pain with urination x 4 days No past medical history on file. No past surgical history on file. ALLERGIES Seasonal Allergies MEDICATIONS fluticasone (FLONASE) 50 mcg/actuation nasal spray ibuprofen (MOTRIN) 600 mg tablet Take by mouth. meloxicam (MOBIC) 15 mg tablet Take 15 mg by mouth once daily. No family history on file. Social History Tobacco Use Smoking status: Never Smokeless tobacco: Never Substance Use Topics Alcohol use: Never Drug use: Never Review of Systems Constitutional: Negative for chills, fever and weight loss. Respiratory: Negative for cough, shortness of breath and wheezing. Cardiovascular: Negative for chest pain and palpitations. Gastrointestinal: Negative for abdominal pain, blood in stool, constipation, diarrhea, heartburn, melena, nausea and vomiting. Genitourinary: Positive for dysuria, frequency and urgency. Negative for flank pain and hematuria. Musculoskeletal: Negative for myalgias. Objective Blood pressure 120/64, pulse 60, temperature 36.2 ?C (97.1 ?F), resp. rate 16, weight 71.7 kg (158 lb), SpO2 97 %. Physical Exam Constitutional: General: She is not in acute distress. Appearance: Normal appearance. She is not toxic-appearing. Cardiovascular: Rate and Rhythm: Normal rate and regular rhythm. Heart sounds: Normal heart sounds. Pulmonary: Effort: Pulmonary effort is normal. Breath sounds: Normal breath sounds. Abdominal: General: Bowel sounds are normal. Palpations: Abdomen is soft. Tenderness: There is no abdominal tenderness. Skin: General: Skin is warm and dry. ASSESSMENT/PLAN: 1. Burning with urination - ICD9: 788.1, ICD10: R30.0 acute - UA positive for lavern esterase, hematuria, proteinuria, and nitrates - Send urine for culture - Begin treatment with Macrobid 100 mg BID for 7 days Agrees to plan Declines avs - UA DIP, URINE (POC) - URINE CULTURE - NITROFURANTOIN MONOHYDRATE AND MACROCRYSTAL 100 MG ORAL CAP Romero Carter APRN.DRUG ROOM OPERATOR [facility] History of Present illness Narrative 04-21-2023 Romero Carter APRN.KATINA - 04/21/2023 9:46 AM EDT Note Date & Type Note Facility 04-21-2023 History of Presen t illness Narrative Subjective HPI HPI Michell Jordan is a 62 year old female who presents today for CC of urinary urgency, frequency, burning. This started 4 days ago. Has tried nothing for relief. Symptoms are worsened by nothing. Risk factors hx of uti/remote. Patient not known to [facility], denies renal/hepatic disease. .Patient presents with: Urinary Problem: burning and pain with urination x 4 days No past medical history on file. No past surgical history on file. ALLERGIES Seasonal Allergies MEDICATIONS fluticasone (FLONASE) 50 mcg/actuation nasal spray ibuprofen (MOTRIN) 600 mg tablet Take by mouth. meloxicam (MOBIC) 15 mg tablet Take 15 mg by mouth once daily. No family history on file. Social History Tobacco Use Smoking status: Never Smokeless tobacco: Never Substance Use Topics Alcohol use: Never Drug use: Never Review of Systems Constitutional: Negative for chills, fever and weight loss. Respiratory: Negative for cough, shortness of breath and wheezing. Cardiovascular: Negative for chest pain and palpitations. Gastrointestinal: Negative for abdominal pain, blood in stool, constipation, diarrhea, heartburn, melena, nausea and vomiting. Genitourinary: Positive for dysuria, frequency and urgency. Negative for flank pain and hematuria. Musculoskeletal: Negative for myalgias. Objective Blood pressure 120/64, pulse 60, temperature 36.2 C (97.1 F), resp. rate 16, weight 71.7 kg (158 lb), SpO2 97 %. Physical Exam Constitutional: General: She is not in acute distress. Appearance: Normal appearance. She is not toxic-appearing. Cardiovascular: Rate and Rhythm: Normal rate and regular rhythm. Heart sounds: Normal heart sounds. Pulmonary: Effort: Pulmonary effort is normal. Breath sounds: Normal breath sounds. Abdominal: General: Bowel sounds are normal. Palpations: Abdomen is soft. Tenderness: There is no abdominal tenderness. Skin: General: Skin is warm and dry. ASSESSMENT/PLAN: 1. Burning with urination - ICD9: 788.1, ICD10: R30.0 acute - UA positive for lavern esterase, hematuria, proteinuria, and nitrates - Send urine for culture - Begin treatment with Macrobid 100 mg BID for 7 days Agrees to plan Declines avs - UA DIP, URINE (POC) - URINE CULTURE - NITROFURANTOIN MONOHYDRATE & MACROCRYSTAL 100 MG ORAL CAP Romero Carter APRN.DRUG ROOM OPERATOR documented in this encounter [facility] Progress note 09-11-2022 Note Date & Type Note Facility 09-11-2022 Note HNO ID: [id number] Author: Romero Carter APRN.KATINA Service: ? Author Type: Nurse Practitioner Type: Progress Notes Filed: 09/11/2022 10:02 AM Note Text: Subjective HPI HPI Michell Jordan is a 62 year old female who presents today for CC of sinus pressure for 7 days, has chronic nasal allergies. Has tried otc medication without relief. Symptoms are worsened by nothing. Risk factors hx of bad nasal allergies/sees ENT, weekly shots. Nonsmoker. Denies cough. .Patient presents with: Eye Problem: Pt reported nasal congestion, bilateral eye irritation x1 wk, denied visual changes. No past medical history on file. No past surgical history on file. ALLERGIES Seasonal Allergies MEDICATIONS fluticasone (FLONASE) 50 mcg/actuation nasal spray ibuprofen (MOTRIN) 600 mg tablet Take by mouth. meloxicam (MOBIC) 15 mg tablet Take 15 mg by mouth once daily. predniSONE (DELTASONE) 20 mg tablet Take 2 tablets by mouth once daily for 5 days. amoxicillin-clavulanic acid (AUGMENTIN) 875-125 mg per tablet Take 1 tablet by mouth twice daily for 7 days. trimethoprim-polymyxin (POLYTRIM) 10,000 unit- 1 mg/mL ophthalmic solution Use 1 Drop in the left eye four times daily for 7 days. No family history on file. Social History Tobacco Use Smoking status: Never Smokeless tobacco: Never Substance Use Topics Alcohol use: Never Drug use: Never Review of Systems Constitutional: Negative for chills and fever. HENT: Positive for congestion and sinus pain. Negative for ear discharge, ear pain, nosebleeds and sore throat. Eyes: Positive for discharge and redness. Negative for blurred vision, double vision, photophobia and pain. Respiratory: Negative for cough, shortness of breath and wheezing. Cardiovascular: Negative for chest pain. Musculoskeletal: Negative for neck pain. Skin: Negative for itching and rash. Neurological: Negative for headaches. Objective Blood pressure 118/70, pulse 63, temperature 36.4 ?C (97.6 ?F), temperature source Tympanic, resp. rate 16, weight 70.9 kg (156 lb 3.2 oz), SpO2 97 %. Physical Exam Constitutional: General: She is not in acute distress. Appearance: She is not toxic-appearing or diaphoretic. HENT: Head: Normocephalic and atraumatic. Right Ear: Hearing, tympanic membrane and external ear normal. Left Ear: Hearing, tympanic membrane, ear canal and external ear normal. Nose: No mucosal edema. Right Sinus: Frontal sinus tenderness present. Left Sinus: Frontal sinus tenderness present. Mouth/Throat: Pharynx: Uvula midline. Eyes: General: Right eye: No discharge. Left eye: Discharge present. Conjunctiva/sclera: Right eye: Right conjunctiva is injected. Left eye: Left conjunctiva is injected. Cardiovascular: Rate and Rhythm: Normal rate and regular rhythm. Heart sounds: Normal heart sounds, S1 normal and S2 normal. Pulmonary: Effort: Pulmonary effort is normal. Breath sounds: Normal breath sounds. Lymphadenopathy: Cervical: No cervical adenopathy. Right cervical: No superficial cervical adenopathy. Left cervical: No superficial cervical adenopathy. Comments: No cervical lymphadenopathy bilaterally Neurological: Mental Status: She is alert and oriented to person, place, and time. Gait: Gait is intact. ASSESSMENT/PLAN: 1. Bacterial sinusitis - ICD9: 473.9, 041.9, ICD10: J32.9, B96.89 (primary diagnosis) Start prednisone, hold atb for 3 days/take atb - Supportive care with plenty of fluids, rest, and analgesia prn. - Follow up in 3-5 days if symptoms persist or worsen. - PREDNISONE 20 MG TABLET - AMOXICILLIN 875 MG-POTASSIUM CLAVULANATE 125 MG TABLET 2. Bacterial conjunctivitis - ICD9: 372.39, 041.9, ICD10: H10.9 Bacterial - see medication orders - course and contagiousness issues discussed, including hand washing. - Instructed to call if high fever, development of periorbital redness or swelling, eye pain, visual changes, concerns or if symptoms persist. - POLYMYXIN B SULFATE 10,000 UNIT-TRIMETHOPRIM 1 MG/ML EYE DROPS Romero Carter APRN.KATINA [facility] History of Present illness Narrative 09-11-2022 Romero Carter APRN.KATINA - 09/11/2022 9:43 AM EST Note Date & Type Note Facility 09-11-2022 History of Presen t illness Narrative Subjective HPI HPI Michell Jordan is a 62 year old female who presents today for CC of sinus pressure for 7 days, has chronic nasal allergies. Has tried otc medication without relief. Symptoms are worsened by nothing. Risk factors hx of bad nasal allergies/sees ENT, weekly shots. Nonsmoker. Denies cough. .Patient presents with: Eye Problem: Pt reported nasal congestion, bilateral eye irritation x1 wk, denied visual changes. No past medical history on file. No past surgical history on file. ALLERGIES Seasonal Allergies MEDICATIONS fluticasone (FLONASE) 50 mcg/actuation nasal spray ibuprofen (MOTRIN) 600 mg tablet Take by mouth. meloxicam (MOBIC) 15 mg tablet Take 15 mg by mouth once daily. predniSONE (DELTASONE) 20 mg tablet Take 2 tablets by mouth once daily for 5 days. amoxicillin-clavulanic acid (AUGMENTIN) 875-125 mg per tablet Take 1 tablet by mouth twice daily for 7 days. trimethoprim-polymyxin (POLYTRIM) 10,000 unit- 1 mg/mL ophthalmic solution Use 1 Drop in the left eye four times daily for 7 days. No family history on file. Social History Tobacco Use Smoking status: Never Smokeless tobacco: Never Substance Use Topics Alcohol use: Never Drug use: Never Review of Systems Constitutional: Negative for chills and fever. HENT: Positive for congestion and sinus pain. Negative for ear discharge, ear pain, nosebleeds and sore throat. Eyes: Positive for discharge and redness. Negative for blurred vision, double vision, photophobia and pain. Respiratory: Negative for cough, shortness of breath and wheezing. Cardiovascular: Negative for chest pain. Musculoskeletal: Negative for neck pain. Skin: Negative for itching and rash. Neurological: Negative for headaches. Objective Blood pressure 118/70, pulse 63, temperature 36.4 C (97.6 F), temperature source Tympanic, resp. rate 16, weight 70.9 kg (156 lb 3.2 oz), SpO2 97 %. Physical Exam Constitutional: General: She is not in acute distress. Appearance: She is not toxic-appearing or diaphoretic. HENT: Head: Normocephalic and atraumatic. Right Ear: Hearing, tympanic membrane and external ear normal. Left Ear: Hearing, tympanic membrane, ear canal and external ear normal. Nose: No mucosal edema. Right Sinus: Frontal sinus tenderness present. Left Sinus: Frontal sinus tenderness present. Mouth/Throat: Pharynx: Uvula midline. Eyes: General: Right eye: No discharge. Left eye: Discharge present. Conjunctiva/sclera: Right eye: Right conjunctiva is injected. Left eye: Left conjunctiva is injected. Cardiovascular: Rate and Rhythm: Normal rate and regular rhythm. Heart sounds: Normal heart sounds, S1 normal and S2 normal. Pulmonary: Effort: Pulmonary effort is normal. Breath sounds: Normal breath sounds. Lymphadenopathy: Cervical: No cervical adenopathy. Right cervical: No superficial cervical adenopathy. Left cervical: No superficial cervical adenopathy. Comments: No cervical lymphadenopathy bilaterally Neurological: Mental Status: She is alert and oriented to person, place, and time. Gait: Gait is intact. ASSESSMENT/PLAN: 1. Bacterial sinusitis - ICD9: 473.9, 041.9, ICD10: J32.9, B96.89 (primary diagnosis) Start prednisone, hold atb for 3 days/take atb - Supportive care with plenty of fluids, rest, and analgesia prn. - Follow up in 3-5 days if symptoms persist or worsen. - PREDNISONE 20 MG TABLET - AMOXICILLIN 875 MG-POTASSIUM CLAVULANATE 125 MG TABLET 2. Bacterial conjunctivitis - ICD9: 372.39, 041.9, ICD10: H10.9 Bacterial - see medication orders - course and contagiousness issues discussed, including hand washing. - Instructed to call if high fever, development of periorbital redness or swelling, eye pain, visual changes, concerns or if symptoms persist. - POLYMYXIN B SULFATE 10,000 UNIT-TRIMETHOPRIM 1 MG/ML EYE DROPS Romero Carter APRN.KATINA documented in this encounter [facility] Evaluation note Note Date & Type Note Facility documented in this encounter [facility] Evaluation note Note Date & Type Note Facility documented in this encounter [facility] Summary Purpose Family History No Family History Records Found Breast cancer Status:Active Comments:Aunt Hypertension Status:Active Comments:Mother. Prostate Cancer Status:Active Comments:Father. Breast cancer Status:Active Comments:Aunt Hypertension Status:Active Comments:Mother. Prostate Cancer Status:Active Comments:Father. Breast cancer Status:Active Comments:Aunt Hypertension Status:Active Comments:Mother. Prostate Cancer Status:Active Comments:Father. Breast cancer Status:Active Comments:Aunt Hypertension Status:Active Comments:Mother. Prostate Cancer Status:Active Comments:Father. Advance Directives No Advanced Directives Records FoundNo Advanced Directives Records FoundNo Advanced Directives Records Found Additional Source Comments INFORMATION SOURCE (unrecogn ized section and content) DATE CREATED AUTHOR AUTHOR'S ORGANIZ ATION 04/24/2023 [facility] DATE CREATED AUTHOR AUTHOR'S ORGANIZ ATION 09/27/2023 [facility] Source Comments (unrecognize d section and content) In the event this informatio n is protected by the Federal Confidentiality of Alcohol and Drug Abuse Patient Records regulations: The Federal rules restrict any use of the information to criminally investigate or prosecute any alcohol or drug abuse patient.[facility] the event this information is protected by the Federal Confidentiality of Alcohol and Drug Abuse Patient Records regulations: The Federal rules restrict any use of the information to criminally investigate or prosecute any alcohol or drug abuse patient.[facility] Reason for Visit (unrecogniz ed section and content) Specialty Diagnoses / Procedures Referred By Contac t Referred To Contact Family Medicine / [facility] Diagnoses Nuevo eye Sneezing Nasal congestion Possible pink eye, congestion and sneezing Procedures OFFICE/OUTPATIENT ESTABLISHED MOD MDM 30-39 MIN EST SAME DAY Self Romero Carter APRN.DRUG ROOM OPERATOR [address] [place] [address] Referral ID Status Reason Start Date Expiration Date Visits Re quested Visits Authorized [id number] Closed 09/11/2022 09/08/2023 1 1 Reason Comments Urinary Problem burning and pain wit h urination x 4 days Care Teams (unrecognized sec tion and content) Inspector Repairer Relationship Specialty Start Date End Date Trinity Olivas I: [id number] [address] [place] [address] [place] [address] PCP - General Family Medicine 09/11/22 FOR RECORDS PERTAINING TO PATIENTS WHO ARE OR HAVE BEEN ENROLLED IN A CHEMICAL DEPENDENCY/SUBSTANCEABUSE PROGRAM, SOME INFORMATION MAY BE OMITTED. This clinical summary was aggregated from multiple sources. Caution should be exercised in using it in the provision of clinical care. This summary normalizes information from multiple sources, and as a consequence, information in this document may materially change the coding, format and clinical context of patient data. In addition, data may be omitted in some cases. CLINICAL DECISIONS SHOULD BE BASED ON THE PRIMARY CLINICAL RECORDS. [facility] [employer] [facility]. provides no warranty or guarantee of the accuracy or completeness of information in this document.
[2023-10-01 13:09] LABS: Absolute Neutrophil Count 5.3 X10^3/uL (2.0-7.7); Basophil# 0.07 X10^3/uL; Basophil% 0.8 % (0-1); Eosinophil# 0.31 X10^3/uL; Eosinophils% 3.4 % (0-5); Hematocrit 35.5 % (37-47); Hemoglobin 11.4 g/dL (12.0-15.0); Lymphocyte % 31.7 % (19-41); Mean Corp Hgb Conc 32.1 g/dL (32-36); Mean Corpuscular Hgb 29.2 pg (27.0-32.0); Mean Platelet Vol. 9.2 fl (6.2-12.0); Monocyte# 0.52 X10^3/uL; Monocyte% 5.7 % (0-10); NRBC Flagged by Analyzer 0 % (0-5); Neutrophil # 5.29 X10^3/uL (2.7-7.7); Neutrophil % 57.6 % (47-70); Platelet Count 314 K/mm3 (150-450); RBC Distribution Width CV 12.8 % (11.6-14.6); White Blood Count 9.2 K/mm3 (4.4-11.0)
[2023-10-01 13:55] LABS: Albumin, Serum 3.7 g/dL (3.2-5.0); Anion Gap 5 (5-15); BUN 24 mg/dL (7-18); BUN/Creat Ratio 24.3 RATIO (10-20); Calcium,Total 9.5 mg/dL (8.5-10.1); Chloride 106 mmol/L (98-107); Creatinine, Serum 0.99 mg/dL (0.55-1.02); EST Glomerular Filtration Rate 60 mL/min (>60); Est Glom Filt Rate - Afr Amer 73 mL/min (>60); Glucose 122 mg/dL (74-106); Potassium 3.9 mmol/L (3.5-5.1); Sodium Level 137 mmol/L (136-145)
== END | disposition home or self-care (01) ==
PROVIDERS: PCP Physician Assistant; Referring Provider Specialist; Visit Provider Specialist
DX: Z01.818 Encounter for other preprocedural examination (principal); Z01.810 Encounter for preprocedural cardiovascular examination
CPT/HCPCS: 36415; 80048; 82040; 85025; 93005

== ENCOUNTER → 2024-07-22 | Outpatient (CLI) | payer OTHER, SELFPAY ==
--- NOTE | 2024-07-22 15:41 | BI_ITS ---
MAMMOGRAPHY - BILATERAL SCREENING REASON FOR EXAM: Female, 64 years old. Routine annual screening examination. PERTINENT HISTORY: Non-contributory. TECHNIQUE: Digital bilateral breast chica (3D mammographic acquisition) in the CC and MLO projections. 2-D mediolateral oblique (MLO) and craniocaudad (CC) views of both breasts were obtained. CAD: Full Field Digital Mammography with Computer Added Detection was performed. COMPARISON: Comparison is made with prior study July 22, 2023 and August 22, 2022. FINDINGS: Breast Composition: There are scattered areas of fibroglandular density. There are no dominant masses or suspicious calcifications. No other significant abnormalities are identified. There has been no significant change since the prior study. BI/SCRN MAMM (CAD)W/CHICA BILAT IMPRESSION: Stable bilateral screening mammogram. Yearly follow-up mammogram recommended. (A) ASSESSMENT CATEGORY: BIRADS Category 1: Negative. A letter regarding these results will be sent to the patient by the facility within 30 days. Approximately 10% of breast cancers are not detected by mammography. A normal mammogram should not delay biopsy of a clinically suspicious abnormality. [id number] Electronically Signed: Padilla Resendiz MD at 8:38 EST ,
== END | disposition home or self-care (01) ==
LOC: OPBI 15:40
PROVIDERS: PCP Physician Assistant; Referring Provider Physician Assistant; Visit Provider Physician Assistant
DX: Z12.31 Encounter for screening mammogram for malignant neoplasm of breast (principal)
CPT/HCPCS: 77063; 77067

== ENCOUNTER → 2025-04-08 | Outpatient (CLI) | payer OTHER, SELFPAY ==
--- NOTE | 2025-04-08 10:01 | BD_ITS ---
PROCEDURE: DEXA BONE DENSITY STUDY 04/08/2025 REASON FOR EXAM: F, age 64 y/o . Postmenopausal. TECHNIQUE: DEXA BONE DENSITY STUDY COMPARISON: Prior study dated September 07, 2021. FINDINGS: BMD and T-SCORES Lumbar spine: 0.723 g/cm2, T-score -2.9 Levels: L1 through L4 Change from prior: Worsening of 9.4%. Right femoral neck: 0.534 g/cm2, T-score -2.8 Femoral neck comparison data not recommended for monitoring change. Right total hip: 0.629 g/cm2, T-score -2.6 Change from prior: Loss of 10.6%. The World Health Organization has defined the following categories based on bone density: Normal bone density: T-score equal to or greater than -1.0 Osteopenia: T-score between -1.0 and -2.5 Osteoporosis: T-score equal to or less than -2.5 The patient does meet the pharmacological treatment recommendations for prevention of osteoporosis. BD/Dexa Bone Density Study IMPRESSION: OSTEOPOROSIS. Recommend follow-up as clinically warranted. Reading Location: [id number]
== END | disposition home or self-care (01) ==
LOC: OPBD 09:58
PROVIDERS: PCP Physician Assistant; Referring Provider Physician Assistant; Visit Provider Physician Assistant
DX: M81.0 Age-related osteoporosis without current pathological fracture (principal)
CPT/HCPCS: 77080

== ENCOUNTER → 2025-08-09 | Outpatient (CLI) | payer OTHER, SELFPAY ==
--- NOTE | 2025-08-09 12:48 | BI_ITS ---
EXAM: SCRN MAMM (CAD)W/CHICA BILAT DATE: 08/09/2025 CLINICAL HISTORY: F, Age 65 y/o , SCREENING TECHNIQUE: Procedure Code: [id number] Modality: MG Procedure: SCRN MAMM (CAD)W/CHICA BILAT COMPARISON: Prior exam(s) dated 07/22/2024, 07/22/2023, and 08/22/2022 . FINDINGS: TISSUE DENSITY: There are scattered areas of fibroglandular density. Bilateral Breast Mammographic Findings: There are no suspicious masses, suspicious cluster of microcalcifications, architectural distortion or secondary signs of malignancy identified in either breast. Benign-appearing round microcalcifications are seen in both breasts. BI/SCRN MAMM (CAD)W/CHICA BILAT IMPRESSION: Benign screening mammogram. OVERALL FINAL ASSESSMENT BI-RADS 2: BENIGN RECOMMENDATION: Routine annual follow-up in 1 Year Additional Recommendation none A letter with findings and recommendations will be mailed to the patient. Reading Location: [id number]
== END | disposition home or self-care (01) ==
LOC: OPBI 12:42
PROVIDERS: PCP Physician Assistant; Referring Provider Physician Assistant; Visit Provider Physician Assistant
DX: Z12.31 Encounter for screening mammogram for malignant neoplasm of breast (principal)
CPT/HCPCS: 77063; 77067